=== PATIENT | male | born 1985 | race Caucasian/White ===

== ENCOUNTER 2021-06-21 09:55 | Outpatient (CLI) | payer OTHER, SELFPAY ==
--- NOTE | 2021-06-21 11:15 | NEURO_ITS ---
Impression: # Complains of intermittent numbness of hands at the end of the day. # Bilateral Carpal Tunnel Syndrome, left more than right. # No ulnar neuropathy. # Normal needle/EMG exam. Nerve Conduction Studies Anti Sensory Summary Table Stim Site NR Peak (ms) P-T Amp (?V) Site1 Site2 Delta-P (ms) Dist (cm) Ino (m/s) Left Median Anti Sensory (2-3nd Digit) Wrist 3.4 36.6 Wrist 2-3nd Digit 3.4 14.0 41 Wrist 3.4 20.8 Wrist 2-3nd Digit 3.4 14.0 41 Right Median Anti Sensory (2-3nd Digit) Wrist 3.5 9.7 Wrist 2-3nd Digit 3.5 14.0 40 Wrist 3.5 17.5 Wrist 2-3nd Digit 3.5 14.0 40 Left Radial Anti Sensory (Base 1st Digit) Wrist 1.8 10.4 Wrist Base 1st Digit 1.8 0.0 Right Radial Anti Sensory (Base 1st Digit) Wrist 2.1 12.8 Wrist Base 1st Digit 2.1 0.0 Left Ulnar Anti Sensory (5th Digit) Wrist 2.4 52.2 Wrist 5th Digit 2.4 14.0 58 Right Ulnar Anti Sensory (5th Digit) Wrist 2.3 59.2 Wrist 5th Digit 2.3 14.0 61 Motor Summary Table Stim Site NR Onset (ms) O-P Amp (mV) Site1 Site2 Delta-0 (ms) Dist (cm) Ino (m/s) Left Median Motor (Abd Poll Brev) Wrist 4.5 1.8 Elbow Wrist 4.9 30.0 61 Elbow 9.4 1.6 Right Median Motor (Abd Poll Brev) Wrist 4.1 1.3 Elbow Wrist 5.3 31.0 58 Elbow 9.4 1.2 Left Ulnar Motor (Abd Dig Minimi) Wrist 2.5 6.2 A Elbow Wrist 5.5 32.0 58 A Elbow 8.0 5.3 Right Ulnar Motor (Abd Dig Minimi) Wrist 2.3 6.5 A Elbow Wrist 5.5 32.0 58 A Elbow 7.8 5.6 F Wave Studies NR F-Lat (ms) L-R F-Lat (ms) Left Median (Mrkrs) (Abd Poll Brev) 30.39 0.06 Right Median (Mrkrs) (Abd Poll Brev) 30.45 0.06 Left Ulnar (Mrkrs) (Abd Dig Min) 29.22 0.65 Right Ulnar (Mrkrs) (Abd Dig Min) 29.87 0.65 EMG Side Muscle Nerve Root Ins Act Fibs Amp Dur Recrt Comment Right 1stDorInt Ulnar C8-T1 Nml Nml Nml Nml Nml Right Ext Indicis Radial (Post Int) C7-8 Nml Nml Nml Nml Nml Right Ext Digitorum Radial (Post Int) C7-8 Nml Nml Nml Nml Nml Right BrachioRad Radial C5-6 Nml Nml Nml Nml Nml Right PronatorTeres Median C6-7 Nml Nml Nml Nml Nml Right Abd Poll Brev Median C8-T1 Nml Nml Nml Nml Nml Left 1stDorInt Ulnar C8-T1 Nml Nml Nml Nml Nml Left Ext Indicis Radial (Post Int) C7-8 Nml Nml Nml Nml Nml Left Ext Digitorum Radial (Post Int) C7-8 Nml Nml Nml Nml Nml Left BrachioRad Radial C5-6 Nml Nml Nml Nml Nml Left PronatorTeres Median C6-7 Nml Nml Nml Nml Nml Left Abd Poll Brev Median C8-T1 Nml Nml Nml Nml Nml Right ABD Dig Min Ulnar C8-T1 Nml Nml Nml Nml Nml Left ABD Dig Min Ulnar C8-T1 Nml Nml Nml Nml Nml MTDD
== END 2021-06-21 09:56 | disposition home or self-care (01) ==
PROVIDERS: PCP Family Medicine; Visit Provider Nurse Practitioner Family
DX: R20.0 Anesthesia of skin (principal); G56.03 Carpal tunnel syndrome, bilateral upper limbs
CPT/HCPCS: 95886; 95911

== ENCOUNTER 2022-12-11 01:24 | Day surgery (SDC) | payer OTHER, SELFPAY ==
[2022-12-06 11:39] VITALS: BMI 37.3
--- NOTE | 2022-12-06 11:43 | PC.NURSE ---
Report to the Outpatient Waiting Room, entrance under the green pavilion located off [facility], at time 0815 on date 12/11/22. Planned Procedure Time: 1015. Time changes happen often and if your time is changed the preop area will call you the afternoon before. - You and your visitor will be asked to self-screen and do not enter if you have any COVID symptoms. - Only one visitor is requested with a max of two and NO children visitors are allowed at this time. - The patient visitor may be requested to leave or wait in car when not with patient due to distancing restrictions. - A mask is REQUIRED within the hospital. Patients may have clear liquids (water, carbonated beverages, clear teas, apple juice) until 3 hours prior to surgery with a maximum of 20 ounces. - No food from midnight until time of surgery Take the following medications with a SIP of water the morning of surgery: N/A Medications to discontinue per physician: N/A Date to take last dose: N/A Please no make-up, nail greenlandic, hairspray, perfume, deodorant, or body powder the day of surgery. No jewelry (including any body piercings) or valuables the day of surgery, leave them at home. Please take a shower or bath the night before, or the morning of, surgery with an antibacterial soap. Wear comfortable, loose fitting clothing. - Jewelry must be removed prior to entering the operating room. Rings and piercings that are not removed may be cut off. - The hospital will not accept responsibility for valuables. - Please leave all valuables, including medications, at home the day of surgery. If you are going home after surgery, a licensed locomotive driver must drive you home. - NO public transportation without another adult if you receive anesthesia. - We recommend that an adult stay with you for 24 hours following discharge. - We also recommend that you do not drive, make important decision, drink alcoholic beverages, or take any drugs that were not prescribed by your health care provider for at least 24 hours after your discharge time. Follow any additional instructions given to you from your surgeon. If you or anyone in your household have experienced Covid symptoms in the past week, please notify your surgeon or the nurse liaison at the phone number below for possible testing. Telephone instructions given to PT - BRIDGETT COULTER and asked if any additional questions and then verbalized understanding. Patient advised to call surgeon office or pre surgery nurse liaison [phone] if any additional questions.
[2022-12-11] VITALS (7 sets, daily range): BP systolic 121–140; BP diastolic 75–87; PULSE 59–76; RESP 12–21; TEMP 36.2–36.4; O2SAT 93–100
--- NOTE | 2022-12-11 11:06 | P.PNAN_ITS ---
Anes - Initial Pre Proc Eval Procedure: Operation Date: 12/11/22 12:15 Proposed Procedures p Excision and Fulguration of Penile and Scrotal Lesions - Carmelo Mendez MD s Bilateral Vasectomy - Carmelo Mendez MD Date/Time: 12/11/22 11:06 Surgeon: Carmelo Mendez MD Pre Op Diagnosis: Scrotal & Penile Lesions, Sterilization Patient Data Age: 37 Gender: M Height: 1.83 m Weight: 127.3 kg Last Vital Signs Temp 36.4 C 12/11/22 10:24 Pulse 61 12/11/22 10:24 Resp 16 12/11/22 10:24 BP 136/80 12/11/22 10:24 Pulse Ox 100 12/11/22 10:24 O2 Del Method Room Air 12/11/22 10:24 Allergies Allergy/AdvReac Type Severity Reaction Status Date / Time No Known Allergies Allergy Verified 12/11/22 10:42 Home Medications Medication Instructions Recorded Confirmed Type No Home Medications 12/06/22 12/11/22 History Patient hx anesthesia problems: none Family hx anesthesia problems: none Results Review: All pre-operative results and documents have been reviewed as part of the pre- operative evaluation. [facility] Social History Social History Smoking status: Never smoker Alcohol intake: current Drinks per week: 6 Substance use: never Substance use type: does not use Living arrangements: with family Spiritual care concerns: No Anes - Eval Final PreProcedure Day of Procedure 12/11/22 11:06 Patient weight: obese Heart: regular rate and rhythm Lungs: clear to auscultation Airway: Mallampati scale class II Neurological: alert and oriented Last oral intake: >/= 8 hours ASA classification: II Emergent: no Anesthetic plan: proceed Anesthesia type and monitoring: general LMA and standard monitoring Results Review: All pre-operative results and documents have been reviewed as part of the pre- operative evaluation. Informed Consent: The patient's anesthetic plan and its attendant risks and benefits were discussed with the patient/family/POA. Questions were solicited and answers provided to the satisfaction of the patient/family/POA.
--- NOTE | 2022-12-11 11:21 | WPDHPUPDATE1 ---
History and Physical Update Update Date/Time: 12/11/22 11:21 History and Physical has been reviewed, including an updated exam of the patient. There are NO changes in the patient's condition. Risks, benefits, and alternatives have been discussed and questions answered. Patient agrees to proceed with procedure. Proceed with fulguration of penile lesions and bilateral vasectomy
[2022-12-11] MEDS: LACTATED RINGERS 1,000 ML 30 ML IV CONT ×2 (11:50→14:30)
[2022-12-11] MEDS: ceFAZolin 3 GM/D5W 100 ML 100 ML IVPB (12:35)
[2022-12-11] MEDS: BUPIVACAINE HCL 0.5% PF 30 ML VIAL INFILTRATE (13:02)
--- NOTE | 2022-12-11 13:17 | W.PM.PROC2 ---
Procedure Note - Detailed Date of Procedure 12/11/22 Pre-op Diagnosis Scrotal & Penile Lesions, Sterilization Post-op Diagnosis Same Procedure Performed Bilateral vasectomy, excision of scrotal lesions, fulguration of penile lesions Surgeon Carmelo Mendez MD Anesthesia General and Local Description of Procedure Patient is taken the operative suite correctly identified. Once anesthesia was obtained he was prepped and draped usual sterile fashion. A midline incision was made in the hemiscrotum. The right vas was isolated with a vas clamp. A segment was excised with the ends fulgurated ligated and buried. This was done bilaterally. Skin was closed using 3-0 chromic interrupted fashion. Patient has 2 scrotal lesions on the right hemiscrotum. The inferior 1 was difficult to tell whether it was a condyloma versus skin deck. We excised this in elliptical fashion. Measure proximally 3 mm. Similar 1 more superior was also excised. We closed using 3-0 chromic interrupted fashion. He then had a proximally 7-8 lesions on his phallus which measured anywhere from a pinpoint up to 2-3 mm. We fulgurated these. There were scraped off with a knife. Hemostasis was adequate. Antibiotic ointment was then placed to the lesions. Patient tolerated procedure well without complications was taken recovery stable condition. He will follow-up in 2-3 weeks time. Please send a copy this op note to my office Estimated Blood Loss 0 Drains No Packing No Pathology Yes Complications No immediate complications Condition Stable Disposition PACU
== END 2022-12-11 15:05 | disposition home or self-care (01) ==
PROVIDERS: PCP Family Medicine; Visit Provider Urology
PROC: (CPT 54060; principal; 2022-12-11 12:15)
PROC: (CPT 55250; 2022-12-11 12:15)
DX: Z30.2 Encounter for sterilization (principal); E66.9 Obesity, unspecified; Z68.38 Body mass index [BMI] 38.0-38.9, adult
CPT/HCPCS: 55250; 17110; 88300; 88305; 88342; A9270; J0690; J1100; J2250; J2405; J2704; J3010; J7120